=== PATIENT | female | born 1970 ===

== ENCOUNTER 2018-04-28 07:37 | Outpatient (CLI) | payer OTHER | END 2018-04-28 07:38 | disposition home or self-care (01) | LOC: BICULT 07:37 | PROVIDERS: ATTEND Internal Medicine | DX: R10.2 Pelvic and perineal pain (principal); N92.6 Irregular menstruation, unspecified; D25.9 Leiomyoma of uterus, unspecified | CPT/HCPCS: 76700; 76856; 93976 ==